=== PATIENT | female | born 1980 | race Hispanic/Latino ===

== ENCOUNTER 2019-01-11 16:56 | Observation (INO) | payer MEDICAID ==
[~2019-01-11] VITALS: Ht 170.2 cm; Wt 99.1 kg
[~2019-01-11 16:56] MED LIST: ASPI-1005 PO; FOLIC ACID PO; PNV91TAB3 PO
== END 2019-01-11 18:35 | disposition home or self-care (01) ==
LOC: EDH 16:56 → LDH 17:08
DX: O26.893 Other specified pregnancy related conditions, third trimester (principal); R10.2 Pelvic and perineal pain; R10.30 Lower abdominal pain, unspecified; O09.523 Supervision of elderly multigravida, third trimester; Z3A.35 35 weeks gestation of pregnancy
CPT/HCPCS: 99284; G0378

== ENCOUNTER 2019-02-06 14:42 | Inpatient (IN) | payer MEDICAID ==
[~2019-02-06] VITALS: Ht 170.2 cm; Wt 98.9 kg
[2019-02-06 15:41] LABS: HEMATOCRIT 39.1 % (36-48); MEAN CORPUSCULAR HEMOGLOBIN 32.7 pg (27.0-33.0); MEAN CORPUSCULAR HGB CONC 34.6 g/dL (32.0-36.0); MEAN CORPUSCULAR VOLUME 94.6 fL (79-99); PLATELET COUNT (AUTO) 240 K/uL (130-400); RED BLOOD CELL COUNT(AUTO) 4.14 MIL/uL (4.00-5.50); RED CELL DISTRIBUTION WIDTH 13.8 % (11.0-15.5); WHITE BLOOD COUNT (AUTO) 11.4 K/uL (4.8-10.8)
[2019-02-07] MEDS ORDERED: CEFAZOLIN SODIUM 1 GM VIAL IVP PRN (06:00)
[2019-02-07] MEDS ORDERED: LACTATED RINGERS 1000ML 1,000 ML IV PRN (06:00)
[2019-02-07] MEDS ORDERED: LACTATED RINGERS 1000ML 1,000 ML IV SCH (06:00)
[2019-02-07] MEDS ORDERED: CALDOLOR 800MG+NS 250ML 250 ML IV PRN (06:00)
[2019-02-07 06:29] LABS: BILIRUBIN,URINE Small (NEGATIVE); COLOR,URINE Dark Yellow (YELLOW); GLUCOSE, URINE (UA) Negative (NEGATIVE); KETONES,URINE Negative (NEGATIVE); LEUKOCYTE ESTERASE ,URINE Negative (NEGATIVE); NITRATE,URINE Negative (NEGATIVE); OCCULT BLOOD,URINE Negative (NEGATIVE); PH,URINE 6.5 (5.0-8.0); PROTEIN,URINE Trace mg/dL (NEGATIVE)
[2019-02-07 06:42] LABS: APPEARANCE,URINE CLEAR (CLEAR)
[2019-02-07] MEDS ORDERED: OXYTOCIN 10 USP UNITS/ML ONE ×2 (07:18→07:49)
[2019-02-07 07:41] LABS: BACTERIA,URINE Many /HPF (None Seen); RBC,URINE 0-1 /HPF (0-1); WBC,URINE 0-1 /HPF (0-1)
[2019-02-07] MEDS ORDERED: ONDANSETRON HCL 4 MG/2 ML VIAL ONE (07:49)
[2019-02-07] MEDS ORDERED: DURAMORPH PF1 MG/ML 10ML AMP IV ONE (07:50)
[2019-02-07] MEDS ORDERED: FENTANYL CITRATE PF 50 MCG/1 ML 2ML VIAL ONE (07:50)
[2019-02-07] MEDS ORDERED: OXYTOCIN 10 USP UNITS/ML IM SCH (10:00)
[2019-02-07] MEDS ORDERED: OXYTOCIN-LR 20 UNITS/1000 ML 1,000 ML IV PRN (10:15)
[2019-02-07] MEDS ORDERED: HYDROCODONE/ACETAMINOPHEN 5/325 MG TAB PO PRN (10:15)
[2019-02-07] MEDS ORDERED: IBUPROFEN 600 MG TABLET PO PRN (10:15)
[2019-02-07] MEDS ORDERED: ACETAMINOPHEN EXTRA STRENGTH 500 MG TABLET PO PRN (10:15)
[2019-02-07] MEDS ORDERED: MEPERIDINE-PF 75 MG/ML SYG IM PRN (10:15)
[2019-02-07] MEDS ORDERED: LANOLIN 30GM OINTMENT TP PRN (10:15)
[2019-02-07] MEDS ORDERED: SODIUM CHLORIDE 0.9% 10 ML VIAL IVP PRN (10:15)
[2019-02-07] MEDS ORDERED: BISACODYL 10 MG SUPP.RECT RC PRN (10:15)
[2019-02-07] MEDS ORDERED: PROMETHAZINE HCL 25 MG/ML 1ML AMPULE IM PRN (10:15)
[2019-02-07] MEDS ORDERED: NALOXONE HCL 0.4 MG/1 ML ML IVP PRN ×3 (11:00)
[2019-02-07] MEDS ORDERED: ONDANSETRON HCL 4 MG/2 ML VIAL IVP PRN (11:00)
[2019-02-07] MEDS ORDERED: DiphenhydrAMINE HCL 50 MG/ML VIAL IVP PRN (11:00)
[2019-02-07 11:52] VITALS: BP 127/79
[2019-02-07] MEDS ORDERED: PREN1COM14 PO (12:06)
[2019-02-07 16:30] VITALS: BP 130/77
[2019-02-07] MEDS: DEXTROSE 5 %-0.45 % NACL 1,000 ML IV PRN (17:50)
[2019-02-07] MEDS: CALDOLOR 800MG+NS 250ML 250 ML IV SCH (17:50)
[2019-02-07 19:20] VITALS: BP 129/72
[2019-02-07] MEDS: DOCUSATE SODIUM 100 MG CAP PO SCH (22:06)
[2019-02-07] MEDS: SIMETHICONE 80 MG TAB.CHEW PO PRN (22:06)
[2019-02-07 23:24] VITALS: BP 109/69
[2019-02-08] MEDS: DEXTROSE 5 %-0.45 % NACL 1,000 ML IV PRN (02:11)
[2019-02-08] MEDS: CALDOLOR 800MG+NS 250ML 250 ML IV SCH (02:11)
[2019-02-08 03:28] VITALS: BP 112/56
[2019-02-08 06:10] LABS: HEPATITIS Bs ANTIGEN SCREEN P Negative (Negative)
--- NOTE | 2019-02-08 06:48 | NUR ---
Chase Catheter Discontinued: Patient informed to call for help the first time she gets up to the restroom. Patient verbalizes understanding.
[2019-02-08 07:12] LABS: HEMATOCRIT 31.2 % (36-48); MEAN CORPUSCULAR HEMOGLOBIN 32.6 pg (27.0-33.0); MEAN CORPUSCULAR HGB CONC 34.4 g/dL (32.0-36.0); MEAN CORPUSCULAR VOLUME 94.8 fL (79-99); PLATELET COUNT (AUTO) 202 K/uL (130-400); RED BLOOD CELL COUNT(AUTO) 3.29 MIL/uL (4.00-5.50); RED CELL DISTRIBUTION WIDTH 13.6 % (11.0-15.5); WHITE BLOOD COUNT (AUTO) 11.6 K/uL (4.8-10.8)
[2019-02-08 08:15] VITALS: BP 102/65
[2019-02-08] MEDS: SIMETHICONE 80 MG TAB.CHEW PO PRN ×4 (08:21→21:08)
[2019-02-08] MEDS: DOCUSATE SODIUM 100 MG CAP PO SCH ×2 (08:21→21:08)
[2019-02-08] MEDS: ACETAMINOPHEN-CODEINE 300/30MG TAB PO PRN ×3 (08:23→20:14)
--- NOTE | 2019-02-08 08:40 | NUR ---
ACTIVITY PT OOB TO CHAIR, STATED NEEDED TO VOID, ASSISTED TO BATHROOM, WAS ABLE TO VOID 300mL OF CLEAR URINE, ASSISTED WITH [facility], PT AMBULATED BACK TO CHAIR TO EAT BREAKFAST
[2019-02-08] MEDS: IBUPROFEN 800 MG TAB PO SCH ×2 (09:36→18:07)
--- NOTE | 2019-02-08 10:50 | NUR ---
ACTIVITY PT AMBULATED ON OWN TO BATHROOM, WAS ABLE TO VOID 900mL OF CLEAR URINE, DID OWN ST[facility]ON CARE, AMBULATED BACK TO BED TO REST
[2019-02-08] MEDS ORDERED: DIPH,PERTUSS(ACELL),TET VAC/PF 0.5 ML VIAL IM PRN (11:30)
[2019-02-08 12:18] VITALS: BP 117/67
--- NOTE | 2019-02-08 13:50 | NUR ---
ACTIVITY PT AMBULATING HALLWAY, STEADY GAIT, TOLERATING WELL, NO C/O PAIN
[2019-02-08 16:00] VITALS: BP 130/79
[2019-02-08 19:25] VITALS: BP 131/76
[2019-02-08 23:32] VITALS: BP 133/75
[2019-02-09] MEDS: IBUPROFEN 800 MG TAB PO SCH ×2 (02:24→09:02)
[2019-02-09 03:17] VITALS: BP 128/73
[2019-02-09] MEDS: ACETAMINOPHEN-CODEINE 300/30MG TAB PO PRN (06:25)
[2019-02-09 07:14] VITALS: BP 135/69
[2019-02-09] MEDS: DOCUSATE SODIUM 100 MG CAP PO SCH (08:59)
[2019-02-09] MEDS: SIMETHICONE 80 MG TAB.CHEW PO PRN (09:00)
--- NOTE | 2019-02-09 11:00 | NUR ---
DR. TRAN ROUNDED AND DISCHARGED PT TO HOME. PATIENT STABLE. INCISION ASSESSED AND NO REDNESS OR DRAINAGE NOTED.
[2019-02-09 11:23] VITALS: BP 133/74
--- NOTE | 2019-02-09 13:45 | NUR ---
DISCHARGE INSTRUCTIONS GIVEN AND SCRIPT FOR PAIN MANAGEMENT AT HOME GIVEN AND INSTRUCTED ON DOSAGE AND FREQUENCY OF MEDS TO BE TAKEN AT HOME. PT VERBALIZED UNDERSTANDING.
--- NOTE | 2019-02-09 14:30 | NUR ---
PATIENT WAS TAKEN VIA W/C TO [facility]ILY [facility] IN [employer]. PATIENT IS STABLE AND DENIES PAIN. Addendum: 02/09/19 at 1510 by JAKE MUSA RN TIME OF DISCHARGE WAS AT 1420.
== END 2019-02-09 14:30 | disposition home or self-care (01) | DRG 540 ==
LOC: PREOBSVTOIN 14:42 → LDH 02-07 05:52 → WSH 02-07 11:50
PROC: 10D00Z1 Extraction of Products of Conception, Low, Open Approach (ICD-10-PCS; principal; 2019-02-07 08:00)
PROC: 3E0234Z Introduction of Serum, Toxoid and Vaccine into Muscle, Percutaneous Approach (ICD-10-PCS; 2019-02-08)
DX: O34.211 Maternal care for low transverse scar from previous cesarean delivery (principal); O32.1XX0 Maternal care for breech presentation, not applicable or unspecified; O69.81X0 Labor and delivery complicated by cord around neck, without compression, not applicable or unspecified; Z37.0 Single live birth; Z3A.39 39 weeks gestation of pregnancy; Z23 Encounter for immunization
CPT/HCPCS: 36415; 59510; 81001; 85027; 86592; 86850; 86900; 86901; 87340; A4344; A4606; G0378; J0690; J1200; J1741; J2274; J2405; J2590; J3010; J7120

== ENCOUNTER 2019-02-11 17:27 | Emergency (ER) | payer MEDICAID ==
[~2019-02-11 17:27] MED LIST changes: +PREN1COM14 PO
[2019-02-11 18:08] LABS: HCG,QUAL RESULT POSITIVE (NEGATIVE)
[2019-02-11 18:10] LABS: APPEARANCE,URINE Clear (CLEAR); BILIRUBIN,URINE Negative (NEGATIVE); COLOR,URINE Yellow (YELLOW); GLUCOSE, URINE (UA) Negative (NEGATIVE); KETONES,URINE Negative (NEGATIVE); LEUKOCYTE ESTERASE ,URINE Negative (NEGATIVE); NITRATE,URINE Negative (NEGATIVE); OCCULT BLOOD,URINE Moderate (NEGATIVE); PH,URINE 7.5 (5.0-8.0); PROTEIN,URINE Negative (NEGATIVE)
[2019-02-11 18:24] LABS: BACTERIA,URINE Few /HPF (None Seen)
[2019-02-11 18:52] LABS: BASOPHILS % (AUTO) 0.5 % (0.0-5.0); EOSINOPHILS % (AUTO) 2.2 % (0.0-8.0); HEMATOCRIT 30.8 % (36-48); LYMPHOCYTES % (AUTO) 16.9 % (21.0-51.0); MEAN CORPUSCULAR HGB CONC 34.6 g/dL (32.0-36.0); MEAN CORPUSCULAR VOLUME 95.6 fL (79-99); MONOCYTES % (AUTO) 4.6 % (3.0-13.0); NEUTROPHILS % (AUTO) 75.8 % (40.0-77.0); NUCLEATED RED BLOOD CELLS 0.1 % (0.0-0.19); PLATELET COUNT (AUTO) 288 K/uL (130-400); RED BLOOD CELL COUNT(AUTO) 3.22 MIL/uL (4.00-5.50); RED CELL DISTRIBUTION WIDTH 13.5 % (11.0-15.5); WHITE BLOOD COUNT (AUTO) 11.8 K/uL (4.8-10.8)
[2019-02-11 19:03] LABS: INR 0.9 (0.85-1.15); PARTIAL THROMBOPLASTIN TIME 27.8 SEC (26.3-35.5); PROTHROMBIN TIME 9.5 SEC (9.6-11.6)
[2019-02-11 19:05] LABS: CARBON DIOXIDE 25 mmol/L (21-32); CHLORIDE 98 mmol/L (101-111); CREATININE 0.6 mg/dL (0.5-1.5); GLOMERULAR FILTR. RATE CALC 120 mL/min (>60); GLUCOSE,RANDOM 87 mg/dL (70-105); POTASSIUM 4.8 mmol/L (3.5-5.1); SODIUM SERUM 133 mmol/L (136-145); UREA NITROGEN, BLOOD 9 mg/dL (7-18)
[2019-02-11 19:16] LABS: ALANINE AMINOTRANSFERASE 107 U/L (12-78); ALBUMIN 2.3 g/dL (3.5-5.0); ASPARTATE AMINOTRANSFERASE 247 U/L (10-37); BILIRUBIN,TOTAL 0.6 mg/dL (0.2-1.0); CREATINE KINASE, TOTAL 249 U/L (21-232); MYOGLOBIN 49 ng/mL (10-92); TROPONIN I < 0.04 ng/mL (0.00-0.06)
== END 2019-02-11 20:56 | disposition home or self-care (01) ==
LOC: EDH 17:27
DX: O92.79 Other disorders of lactation (principal); O90.89 Other complications of the puerperium, not elsewhere classified; R50.9 Fever, unspecified; R30.0 Dysuria; Z91.041 Radiographic dye allergy status; Z88.8 Allergy status to other drugs, medicaments and biological substances; Z90.49 Acquired absence of other specified parts of digestive tract; Z98.890 Other specified postprocedural states
CPT/HCPCS: 36415; 71045; 76705; 80053; 81001; 81025; 82550; 83605; 83874; 84145; 84484; 85025; 85610; 85730; 87040; 87088; 87804; 93005

== ENCOUNTER 2021-12-11 05:24 | Emergency (ER) | payer MEDICAID, OTHER ==
[~2021-12-11] VITALS: Ht 170.2 cm; Wt 99.8 kg
[~2021-12-11 05:24] MED LIST changes: -ASPI-1005 PO; -PNV91TAB3 PO
[2021-12-11 06:30] VITALS: BP 136/80
== END 2021-12-11 06:52 | disposition home or self-care (01) ==
LOC: EDH 05:24
DX: U07.1 COVID-19 (principal); F41.0 Panic disorder [episodic paroxysmal anxiety]; R11.10 Vomiting, unspecified; Z88.1 Allergy status to other antibiotic agents; Z90.49 Acquired absence of other specified parts of digestive tract
CPT/HCPCS: 93005